=== PATIENT | female | born 1985 | race Caucasian/White ===

== ENCOUNTER 2019-09-09 08:42 | Observation (INO) ==
[2019-09-09] MEDS ORDERED: *HR* FentaNYL (PF) 100 MCG/2 ML VIAL IVP ONE (09:01)
[2019-09-09] MEDS ORDERED: Nitroglycerin 0.4 MG TAB.SUBL SL PRN (09:01)
[2019-09-09] MEDS ORDERED: Aspirin 81 MG TAB.CHEW PO ONE (09:01)
[2019-09-09 09:19] LABS: Basophils % 0.6 %; Eosinophils # 0.1 K/mcL (0.0-0.6); Eosinophils % 1.2 %; Hematocrit 43.6 % (35.3-44.9); Hemoglobin 14.8 g/dL (11.5-15.4); Immature Granulocytes % 0.2 % (0-4); Lymphocytes # 2.2 K/mcL (0.6-4.6); Lymphocytes % 42.2 %; Mean Corpuscular HGB Conc 33.9 g/dL (31.6-35.5); Mean Corpuscular Hemoglobin 29.6 pg (28.0-33.3); Mean Corpuscular Volume 87.2 fL (83.0-100.0); Monocytes # 0.3 K/mcL (0.0-1.3); Monocytes % 5.4 %; Neutrophils # 2.6 K/mcL (1.6-8.9); Platelet Count 283 K/mcL (140-400); Red Cell Distribution Width 12.3 % (11.5-14.5); Segmented Neutrophils % 50.4 %; White Blood Count 5.2 K/mcL (4.3-11.1)
[2019-09-09 09:26] LABS: INR 0.9; Prothrombin Time 10.5 Seconds (9.4-12.1)
[2019-09-09 09:28] LABS: Activated Partial Thrombo Time 32.5 Seconds (26.0-36.0)
[2019-09-09 09:40] LABS: BUN/Creatinine Ratio 14 (6-26); Blood Urea Nitrogen 10 mg/dL (6-20); Calcium 9.4 mg/dL (8.6-10.3); Carbon Dioxide 24 mEq/L (23-29); Chloride 107 mEq/L (98-107); Glucose 103 mg/dL (70-105); Osmolality,Calculated 289 (280-300); Potassium 3.6 mEq/L (3.5-5.1); Sodium 140 mEq/L (136-145); Troponin I < 0.03 ng/mL (< 0.04); eGFR For African Americans > 60 (> 60); eGFR For Non-African Americans > 60 (> 60)
[2019-09-09] MEDS ORDERED: Naloxone 0.4 MG/ML INJ IVP PRN (11:23)
[2019-09-09] MEDS ORDERED: Ondansetron 4 MG/2 ML VIAL IVP PRN (11:23)
[2019-09-09] MEDS ORDERED: Nitroglycerin 1,000 MCG/10 ML VIAL IV ONE (13:15)
[2019-09-09] MEDS ORDERED: Heparin 1,000 UNITS/500 mL 500 ML ONE (13:15)
[2019-09-09] MEDS ORDERED: *HR* Heparin 10,000 UNIT/10 ML VIAL ONE (13:15)
[2019-09-09] MEDS ORDERED: ISOVUE-370 200 ML INFUS..BTL ONE (13:15)
[2019-09-09] MEDS ORDERED: 0.9 % Sodium Chloride 2,000 ML ONE (13:15)
[2019-09-09] MEDS ORDERED: *HR* Midazolam HCl 2 MG/2 ML VIAL ONE (13:33)
[2019-09-09] MEDS ORDERED: Verapamil 5 MG/2 ML VIAL ONE (13:54)
[2019-09-09] MEDS ORDERED: Acetaminophen 325 MG TABLET PO PRN (14:18)
[2019-09-09] MEDS ORDERED: NON-FORMULARY MEDICATION 1 EACH EACH (Ondansetron [Zofran Odt] 8 MG) SL PRN (18:27)
[2019-09-09] MEDS ORDERED: SUMAtriptan succinate 50 MG TABLET PO PRN (18:27)
[2019-09-10 01:21] LABS: Basophils % 0.5 %; Eosinophils # 0.1 K/mcL (0.0-0.6); Eosinophils % 1.2 %; Hematocrit 40.7 % (35.3-44.9); Hemoglobin 13.9 g/dL (11.5-15.4); Immature Granulocytes % 0.2 % (0-4); Lymphocytes # 3.2 K/mcL (0.6-4.6); Mean Corpuscular HGB Conc 34.2 g/dL (31.6-35.5); Mean Corpuscular Hemoglobin 29.9 pg (28.0-33.3); Mean Corpuscular Volume 87.5 fL (83.0-100.0); Mean Platelet Volume 11.5 fL (9.4-12.4); Monocytes # 0.3 K/mcL (0.0-1.3); Monocytes % 4.8 %; Platelet Count 273 K/mcL (140-400); Red Blood Count 4.65 M/mcL (3.82-4.97); Red Cell Distribution Width 12.4 % (11.5-14.5); Segmented Neutrophils % 45.3 %; White Blood Count 6.6 K/mcL (4.3-11.1)
[2019-09-10 01:22] LABS: Prothrombin Time 11.1 Seconds (9.4-12.1)
[2019-09-10 01:40] LABS: BUN/Creatinine Ratio 17 (6-26); Blood Urea Nitrogen 14 mg/dL (6-20); Calcium 9.1 mg/dL (8.6-10.3); Carbon Dioxide 22 mEq/L (23-29); Chloride 108 mEq/L (98-107); Chol/HDL Ratio 4.5 (0-4.9); Cholesterol 194 mg/dL (< 200); Glucose 100 mg/dL (70-105); HDL Cholesterol 43 mg/dL (40-59); LDL Cholesterol,Calculated 128 mg/dL (0-99); Osmolality,Calculated 289 (280-300); Potassium 3.4 mEq/L (3.5-5.1); Sodium 139 mEq/L (136-145); Triglycerides 113 mg/dL (< 150); eGFR For African Americans > 60 (> 60); eGFR For Non-African Americans > 60 (> 60)
[2019-09-10] MEDS ORDERED: Ondansetron 4 MG/2 ML VIAL IVP PRN (08:29)
[2019-09-10] MEDS ORDERED: Diltiazem CD (24hr) 120 MG CAPSULE PO SCH (09:00)
[2019-09-10] MEDS ORDERED: Aspirin Enteric Coated 81 MG Tablet PO SCH ×2 (09:00)
[2019-09-10] MEDS ORDERED: TROKENDI 50 MG PO SCH (09:00)
[2019-09-10] MEDS ORDERED: Prochlorperazine 10 MG/2 ML VIAL IVP PRN (10:45)
[2019-09-10] MEDS ORDERED: Ketorolac 30 MG/ML VIAL IVP ONE ×2 (10:50→13:45)
[2019-09-10 11:38] VITALS: BP 98/61
[2019-09-10] MEDS ORDERED: 0.9 % Sodium Chloride 500 ML IV ONE (11:57)
== END 2019-09-10 15:12 | disposition home or self-care (01) ==
LOC: 3BNU 08:42 → EMEROOARM 08:42 → 3BNU 10:44
PROVIDERS: ADMIT Student in an Organized Health Care Education/Training Program; ATTEND Student in an Organized Health Care Education/Training Program